=== PATIENT | male | born 1975 | race Caucasian/White ===

== ENCOUNTER 2023-03-02 13:17 | Emergency (ER) | payer MEDICAID ==
[~2023-03-02] VITALS: Ht 180.3 cm; Wt 72.0 kg
[2023-03-02 13:22] VITALS: BP 123/79
[2023-03-02] MEDS ORDERED: SULF1TAB49 PO (14:48)
[2023-03-02] MEDS ORDERED: CEPH500C2 PO (14:48)
== END 2023-03-02 14:52 | disposition home or self-care (01) ==
LOC: ER 13:18
DX: L03.116 Cellulitis of left lower limb (principal); Z79.899 Other long term (current) drug therapy
CPT/HCPCS: 99283

== ENCOUNTER 2023-03-26 03:49 | Emergency (ER) | payer MEDICAID ==
[~2023-03-26] VITALS: Ht 180.3 cm; Wt 63.6 kg
[~2023-03-26 03:49] MED LIST: CEPH500C2 PO
[2023-03-26] MEDS ORDERED: dexamethasone sod phosphate 10mg/ml inj IV STA (03:53)
[2023-03-26] MEDS ORDERED: CefTRIAXone 2gm/D5W 50ml BAG 50 ML IV ONE (03:55)
[2023-03-26 04:25] LABS: ALANINE AMINOTRANSFERASE 16 U/L (12-78); ALBUMIN 3.6 G/DL (3.4-5.0); ALBUMIN/GLOBULIN RATIO 1.1 (1.1-1.5); ALKALINE PHOSPHATASE 116 IU/L (46-116); ANION GAP 7 (8-16); ASPARTATE AMINO TRANSFERASE 19 U/L (10-37); BILIRUBIN,TOTAL 0.3 MG/DL (0.1-1.0); BLOOD UREA NITROGEN 19 MG/DL (7-18); BUN/CREATININE RATIO 19.8 (10.0-20.0); CALCIUM 8.2 MG/DL (8.5-10.1); CHLORIDE 104 MMOL/L (99-107); CREATININE 0.96 MG/DL (0.60-1.10); GLUCOSE 107 MG/DL (70-104); SODIUM 140 MMOL/L (135-145); TOTAL CARBON DIOXIDE 29.1 MMOL/L (24-32); TOTAL PROTEIN 6.8 G/DL (6.4-8.2); eGFR 84 ML/MIN
[2023-03-26 04:27] LABS: POTASSIUM 4.2 MMOL/L (3.5-5.1)
[2023-03-26 04:30] LABS: BASOPHILS % (AUTO) 0.5 % (0-1); EOSINOPHILS # (AUTO) 0.5 X10'3 (0-0.9); HEMATOCRIT 39.4 % (42.0-52.0); HEMOGLOBIN 13.4 g/dl (14.0-17.9); LYMPHOCYTES # (AUTO) 1.7 X10'3 (1.1-4.8); LYMPHOCYTES % (AUTO) 29.2 % (21-51); MEAN CORPUSCULAR HEMOGLOBIN 29.5 PG (27.0-31.0); MEAN CORPUSCULAR HGB CONC 33.9 g/dL (33.0-36.5); MEAN CORPUSCULAR VOLUME 86.8 FL (78-98); MEAN PLATELET VOLUME 7.2 FL (7.4-10.4); MONOCYTES # (AUTO) 0.4 X10'3 (0-0.9); MONOCYTES % (AUTO) 7.1 % (2-12); NEUTROPHILS # (AUTO) 3.1 X10'3 (1.8-7.7); NEUTROPHILS % (AUTO) 54.2 % (42-75); PLATELET COUNT 210 X10'3 (140-440); RED BLOOD COUNT 4.54 X10'6 (4.70-6.10); RED CELL DISTRIBUTION WIDTH 13.2 % (11.5-14.5); WHITE BLOOD COUNT 5.7 X10'3 (4.5-11.0)
[2023-03-26] MEDS ORDERED: CHLO473M3 PO (05:20)
[2023-03-26] MEDS ORDERED: DEXA4TAB77 PO (05:20)
[2023-03-26] MEDS ORDERED: AMOX-117 PO (05:20)
[2023-03-26 05:30] VITALS: BP 144/75
== END 2023-03-26 05:31 | disposition home or self-care (01) ==
LOC: ER 04:49
DX: K12.2 Cellulitis and abscess of mouth (principal); F17.200 Nicotine dependence, unspecified, uncomplicated; Z79.899 Other long term (current) drug therapy
CPT/HCPCS: 36415; 70360; 71045; 80053; 85025; 96365; 96375; 99285; J0696; J1100

== ENCOUNTER 2023-11-10 11:43 | Emergency (ER) | payer MEDICAID, OTHER ==
[~2023-11-10] VITALS: Ht 177.8 cm; Wt 66.5 kg
[~2023-11-10 11:43] MED LIST changes: -CEPH500C2 PO; +CHLO473M3 PO; +DEXA4TAB77 PO
[2023-11-10] MEDS ORDERED: SULF1TAB49 PO (12:41)
[2023-11-10] MEDS ORDERED: CEPH-585 PO (12:41)
[2023-11-10] MEDS ORDERED: NAPR-56 PO (12:41)
[2023-11-10 12:49] VITALS: BP 124/77; PULSE 101; RESP 16; TEMP 98.4; O2SAT 99
== END 2023-11-10 12:51 | disposition home or self-care (01) ==
LOC: ER 11:44
DX: L03.115 Cellulitis of right lower limb (principal)
CPT/HCPCS: 99283

== ENCOUNTER 2024-08-22 13:02 | Emergency (ER) | payer MEDICAID ==
[~2024-08-22] VITALS: Ht 177.8 cm; Wt 49.3 kg
[~2024-08-22 13:02] MED LIST changes: +CEPH-585 PO; +CHLO473M13 PO; -CHLO473M3 PO
[2024-08-22] MEDS: HYDROcodone/acetaminophen 10/325mg tab PO ONE (13:49)
[2024-08-22 14:44] LABS: BASOPHILS % (AUTO) 0.2 % (0-1); EOSINOPHILS # (AUTO) 0.1 X10'3 (0-0.9); EOSINOPHILS % (AUTO) 0.5 % (0-6); HEMATOCRIT 42.2 % (42.0-52.0); LYMPHOCYTES # (AUTO) 0.8 X10'3 (1.1-4.8); LYMPHOCYTES % (AUTO) 6.2 % (21-51); MEAN CORPUSCULAR HEMOGLOBIN 29.6 PG (27.0-31.0); MEAN CORPUSCULAR HGB CONC 33.1 g/dL (33.0-36.5); MEAN CORPUSCULAR VOLUME 89.3 FL (78-98); MONOCYTES # (AUTO) 0.4 X10'3 (0-0.9); MONOCYTES % (AUTO) 3.6 % (2-12); NEUTROPHILS # (AUTO) 11.1 X10'3 (1.8-7.7); NEUTROPHILS % (AUTO) 89.5 % (42-75); PLATELET COUNT 295 X10'3 (140-440); RED BLOOD COUNT 4.73 X10'6 (4.70-6.10); RED CELL DISTRIBUTION WIDTH 13.6 % (11.5-14.5); WHITE BLOOD COUNT 12.3 X10'3 (4.5-11.0)
[2024-08-22 15:02] LABS: ALBUMIN 3.8 G/DL (3.4-5.0); ANION GAP 9 (8-16); BLOOD UREA NITROGEN 20 MG/DL (7-18); BUN/CREATININE RATIO 23.5 (10.0-20.0); CALCIUM 8.9 MG/DL (8.5-10.1); CHLORIDE 100 MMOL/L (99-107); CREATININE 0.85 MG/DL (0.60-1.10); GLUCOSE 104 MG/DL (70-104); POTASSIUM 3.3 MMOL/L (3.5-5.1); SODIUM 136 MMOL/L (135-145); eCRCL 73 ML/MIN; eGFR > 90 ML/MIN
[2024-08-22] MEDS ORDERED: AMOX500C2 PO (15:13)
[2024-08-22] MEDS: amoxicillin 250mg capsule PO ONE (15:29)
[2024-08-22] MEDS: potassium Cl 20 mEq SR tablet PO STA (15:29)
[2024-08-22] MEDS: ketorolac trometh 15mg/ml vial 15 MG/ML ML IM ONE (15:30)
[2024-08-22 15:35] VITALS: BP 134/90; PULSE 101; RESP 19; TEMP 97.8; O2SAT 100
== END 2024-08-22 15:40 | disposition home or self-care (01) ==
LOC: ER 13:03
DX: R51.9 Headache, unspecified (principal); E87.6 Hypokalemia; Z79.2 Long term (current) use of antibiotics; Z79.899 Other long term (current) drug therapy
CPT/HCPCS: 36415; 70450; 80048; 85025; 96372; 99285; J1885

== ENCOUNTER 2025-09-14 18:33 | Emergency (ER) | payer MEDICAID, OTHER ==
[~2025-09-14] VITALS: Ht 180.3 cm; Wt 62.7 kg
[~2025-09-14 18:33] MED LIST changes: -CEPH-585 PO
[2025-09-14 19:16] VITALS: BP 129/80; TEMP 98.5; O2SAT 98
[2025-09-14] MEDS: ampicillin/sulbac 3gm/NS 100ml 100 ML IV STA (20:34)
--- NOTE | 2025-09-14 20:39 | VASCULAR REPORT ---
CLINICAL HISTORY: Left lower extremity paranasal swelling TECHNIQUE: Color and duplex doppler imaging of the left lower extremity veins was performed. Vessel compression if possible was also performed. WID: COMPARISON: None FINDINGS: Right common femoral vein: Normal flow and phasicity. Left common femoral vein: Normal compressibility and flow. Left femoral vein: Normal compressibility and flow. Left popliteal vein: Normal compressibility and flow. Proximal calf veins are normally compressible. Prominent reactive appearing left inguinal lymph node measuring 1.0 x 2.7 cm. Subcutaneous edema in the left calf. IMPRESSION: 1. NO SONOGRAPHIC EVIDENCE FOR DEEP VENOUS THROMBOSIS IN THE LEFT LOWER EXTREMITY VEINS. 2. Mild subcutaneous edema in the left calf.
[2025-09-14] MEDS ORDERED: CEPH-585 PO (21:13)
[2025-09-14] MEDS ORDERED: AMOX-580 PO (21:13)
--- NOTE | 2025-09-14 21:13 | Physician Documentation ---
History of Present Illness ~ Chief Complaint: Leg Pain Stated Complaint: CELLULITIS Time Seen by MD: 19:36 Primary Medical Doctor: NONE HPI 50 y/o male reports LLE redness x 2 days. Endorses similar presentation of LLE cellulitis in past. No [place] contacts or recent illness/injures. No reported fevers. Tetanus witin 5 years: Yes Medication Reconciliation Allergies: Coded Allergies: No Known Allergies (Unverified , 08/22/24) Scheduled Amox Tr/Potassium Clavulanate 875/125 MG (Augmentin 875/125 MG), 1 TAB PO BID Cephalexin*Monohydrate* (Keflex*), 1 CAP PO TID Chlorhexidine Gluconate (Periogard), 15 ML PO Q12H Dexamethasone (Dexamethasone), 2 TAB PO DAILY Past Medical History Past Medical History: No Pertinent History Past Surgical History: no surgical history Alcohol Use: None Drug Use: none Lives In: Home Review of Systems All Other Systems at this time: Reviewed and Negative Musculoskeletal: Reports: pain, swelling Integumentary: Reports: rash Physical Exam Vital Signs: Temperature: 98.5, Source: Oral, Heart Rate: 103, Respiratory Rate: 16, BP: 129/80, Pulse Oximetry: 98, Weight: 62.700 Oxygen Flow Rate: 0 Progress Results/Orders Results/Orders Orders - ELI GOMEZ PAC Vl Venous (09/14/25 19:40) Completed Orders - ELI GOMEZ PAC Vl Venous (09/14/25 19:40) Ampicillin/Sulbac 3gm/Ns 100ml (Unasyn 3 (09/14/25 19:56) Medications Received in ER Medications (Trade) Dose Ordered Sig/Liz Route PRN Reason Start Time Stop Time Status Last Admin Dose Admin Ampicillin Sodium/ Sulbactam Sodium 100 ml @ 200 mls/hr ONCE STAT IV 09/14/25 19:56 09/14/25 20:25 DC 09/14/25 20:34 200 MLS/HR Vital Signs 09/14/25 19:16 Temp 98.5 Pulse 103 Resp 16 B/P (MAP) 129/80 Pulse Ox 98 O2 Flow Rate 0 Medical Decision Making Additional information obtaine: N/A Findings Examination history consistent with left lower leg cellulitis. Patient offered admission upon initial evaluation however declines and wishes to attempt management outpatient. Will rule out DVT with ultrasound imaging. Reassurance that there was no vascular occlusion with ultrasound. Ultrasound imaging is consistent with a subcutaneous cobblestone in edema consistent with cellulitis. Patient to receive Unasyn 3.5 in the emergency department tonight heavily discharged with Augmentin and Keflex. General Diff Dx:Considerations: Include: Other (Cellulitis, DVT, Abscess) Knee Diff Dx:Considerations: Include: Other (Noncontributory) Ankle Diff Dx:Considerations: Include: Other (Noncontributory) Foot Diff Dx:Considerations: Include: Other Toe Diff Dx:Considerations: Include: Other (Noncontributory noncontributory) Departure Disposition: HOME / SELF CARE / HOMELESS Impression: Primary Impression: Cellulitis Qualified Codes: L03.116 - Cellulitis of left lower limb Condition: Stable Discharge Instructions: Cellulitis, Adult Additional Instructions: Please begin antibiotics as directed for your cellulitis. Please return in the emergency department 20/48 hours if symptoms worsen. Thank you for visiting emergency department [facility]. Referrals: NO PRIMARY CARE PROVIDER (PCP) Prescriptions Cephalexin*Monohydrate* (Keflex*) 500 Mg Capsule 1 CAP PO TID, #30 CAP Prov: ELI GOMEZ PAC 09/14/25 Amox Tr/Potassium Clavulanate 875/125 MG (Augmentin 875/125 MG) 875 Mg-125 Mg Tablet 1 TAB PO BID, #20 TAB Prov: ELI GOMEZ PAC 09/14/25 Education Educated: Patient Educated regarding: diagnosis, treatment, prognosis, need for follow up Signature Scribe Signature: . Attestation: . ELI GOMEZ PAC Sep 14, 2025 21:13
[2025-09-14 21:24] VITALS: PULSE 84; RESP 18
== END 2025-09-14 21:27 | disposition home or self-care (01) ==
LOC: ER 18:33
DX: L03.116 Cellulitis of left lower limb (principal); Z79.899 Other long term (current) drug therapy
CPT/HCPCS: 93971; 96365; 99285; J0295